=== PATIENT | male | born 1975 | race Caucasian/White ===

== ENCOUNTER 2017-05-27 12:21 | Emergency (ER) | payer SELFPAY ==
[2017-05-27 13:20] LABS: APPEARANCE CLEAR (CLEAR); BILIRUBIN NEGATIVE (NEGATIVE); COLOR YELLOW (YELLOW); GLUCOSE NEGATIVE (NEGATIVE); KETONE NEGATIVE (NEGATIVE); LEUKOCYTE ESTERASE 1+ (NEGATIVE); NITRITE NEGATIVE (NEGATIVE); PH 7.5 (5.0-6.0); PROTEIN NEGATIVE (NEGATIVE); UROBILINOGEN NORMAL (NORMAL)
[2017-05-27 13:22] LABS: BACTERIA FEW /hpf (NONE SEEN); EPITHELIAL CELLS OCC /hpf (0-5); GRANULAR CAST RARE /lpf (NONE SEEN); HYALINE CAST OCC /lpf (NONE SEEN); MUCUS <1+ /lpf (NONE SEEN); RED CELLS - URINE 0-5 /hpf (0-5)
== END 2017-05-27 15:40 | disposition home or self-care (01) ==
LOC: D.ER 12:21
PROVIDERS: Family Medicine
DX: S29.012A Strain of muscle and tendon of back wall of thorax, initial encounter (principal); V53.5XXA Driver of pick-up truck or van injured in collision with car, pick-up truck or van in traffic accident, initial encounter; Y93.89 Activity, other specified; Y92.410 Unspecified street and highway as the place of occurrence of the external cause; S39.012A Strain of muscle, fascia and tendon of lower back, initial encounter; S20.219A Contusion of unspecified front wall of thorax, initial encounter; S30.1XXA Contusion of abdominal wall, initial encounter; Z86.73 Personal history of transient ischemic attack (TIA), and cerebral infarction without residual deficits; R07.9 Chest pain, unspecified; F17.200 Nicotine dependence, unspecified, uncomplicated

== ENCOUNTER 2018-07-08 14:04 | Emergency (ER) | payer MEDICARE ==
[~2018-07-08] VITALS: Ht 185.4 cm; Wt 56.8 kg
[2018-07-08 14:11] VITALS: Ht 185.4 cm; Wt 56.8 kg
[2018-07-08 15:02] LABS: BASOPHILS 0.3 % (0-2); EOSINOPHILS 1.2 % (0-7); HEMATOCRIT 43.8 % (42.0-54.0); HEMOGLOBIN 15.7 g/dL (13.5-17.5); IMMATURE GRANULOCYTES 0.2 % (0-5); LYMPHOCYTES 33.9 % (15-50); MCHC 35.8 g/dL (31.0-37.0); MCV 89.2 fL (80.0-100.0); MEAN PLATELET VOLUME 10.9 fL (7.4-10.4); MONOCYTES 7.4 % (2-11); PLATELET COUNT 163 10x3/uL (130-400); RBC 4.91 10x6/uL (4.20-6.10); RDW 12.8 % (11.5-14.5); WBC 6.5 10x3/uL (4.8-10.8)
[2018-07-08 15:09] LABS: APPEARANCE TURBID (CLEAR); BILIRUBIN NEGATIVE (NEGATIVE); COLOR AMBER (YELLOW); GLUCOSE NEGATIVE (NEGATIVE); KETONE NEGATIVE (NEGATIVE); NITRITE NEGATIVE (NEGATIVE); PROTEIN NEGATIVE (NEGATIVE); SPECIFIC GRAVITY 1.005 (1.005-1.020); UROBILINOGEN NORMAL (NORMAL)
[2018-07-08 15:12] LABS: RED CELLS - URINE >50 /hpf (0-5); WHITE CELLS - URINE 0-5 /hpf (0-5)
[2018-07-08 15:13] LABS: AMORPHOUS SEDIMENT >1+ /lpf (NONE SEEN); BACTERIA FEW /hpf (NONE SEEN); EPITHELIAL CELLS OCC /hpf (0-5); GRANULAR CAST RARE /lpf (NONE SEEN)
[2018-07-08 15:16] LABS: ALKALINE PHOSPHATASE 88 U/L (46-116); ALT (SGPT) 26 U/L (10-68); BILIRUBIN - TOTAL 0.38 mg/dL (0.2-1.3); CALC OSMOLALITY 280 mosm/kg (275-300); CALCIUM 8.3 mg/dL (8.5-10.1); CARBON DIOXIDE 28.7 mmol/L (21.0-32.0); CHLORIDE - SERUM 104 mmol/L (98-107); CREATININE - SERUM 0.8 mg/dL (0.6-1.3); GLUCOSE 117 mg/dL (74-106); PROTEIN - SERUM 6.9 g/dL (6.4-8.2); SODIUM 141 mmol/L (136-145); UREA NITROGEN 9 mg/dL (7-18); eGFR NON AFRICAN AMERICAN > 90 mL/min (90-120)
[2018-07-08] MEDS ORDERED: NORCO 7.5/325 T1 TA1 PO (17:48)
[2018-07-08] MEDS ORDERED: FLOMAX0.4 MG PO (17:48)
[2018-07-08 18:04] VITALS: BP 104/75
== END 2018-07-08 18:06 | disposition home or self-care (01) ==
LOC: D.ER 14:04
PROVIDERS: Family Medicine
DX: N20.0 Calculus of kidney (principal); N23 Unspecified renal colic; F17.200 Nicotine dependence, unspecified, uncomplicated

== ENCOUNTER → 2018-08-01 14:17 | Outpatient (CLI) | payer MEDICARE, BC ==
[2018-07-08 14:11] VITALS: BMI 16.5
[~2018-08-01 14:17] MED LIST: FLOMAX0.4 MG PO; NORCO 7.5/325 T1 TA1 PO
== END | disposition home or self-care (01) ==
LOC: D.RAD 14:17
DX: N20.1 Calculus of ureter (principal)

== ENCOUNTER → 2018-08-07 16:22 | Outpatient (CLI) | payer MEDICARE, BC ==
[2018-07-08 14:11] VITALS: BMI 16.5
== END | disposition home or self-care (01) ==
LOC: D.CT 16:22
DX: N20.0 Calculus of kidney (principal)

== ENCOUNTER 2020-06-05 12:12 | Emergency (ER) | payer MEDICARE ==
[~2020-06-05] VITALS: Ht 185.4 cm; Wt 65.0 kg
[2020-06-05 13:10] VITALS: Ht 185.4 cm; Wt 65.0 kg
[2020-06-05] MEDS ORDERED: VOLTAREN75 MG PO (13:42)
[2020-06-05 14:03] VITALS: BP 112/65
== END 2020-06-05 14:04 | disposition home or self-care (01) ==
LOC: D.ER 12:12
DX: K02.9 Dental caries, unspecified (principal); K08.89 Other specified disorders of teeth and supporting structures; Z72.0 Tobacco use

== ENCOUNTER 2020-07-11 16:46 | Emergency (ER) | payer OTHER ==
[~2020-07-11] VITALS: Ht 185.4 cm; Wt 63.6 kg
[~2020-07-11 16:46] MED LIST changes: +VOLTAREN75 MG PO
[2020-07-11 16:56] VITALS: Ht 185.4 cm; Wt 63.6 kg
[2020-07-11 18:21] LABS: BASOPHILS 0.5 % (0-2); HEMATOCRIT 46.8 % (42.0-54.0); HEMOGLOBIN 16.5 g/dL (13.5-17.5); IMMATURE GRANULOCYTES 0.1 % (0-5); LYMPHOCYTES 39.9 % (15-50); MCH 32.2 pg (26.0-34.0); MCHC 35.3 g/dL (31.0-37.0); MCV 91.4 fL (80.0-100.0); MEAN PLATELET VOLUME 9.9 fL (7.4-10.4); MONOCYTES 7.3 % (2-11); NEUTROPHILS 51.2 % (40-80); RBC 5.12 10x6/uL (4.20-6.10); RDW 12.9 % (11.5-14.5); WBC 7.8 10x3/uL (4.8-10.8)
[2020-07-11 18:23] LABS: PLATELET COUNT 207 10x3/uL (130-400)
[2020-07-11 18:30] LABS: APTT 29.8 SECONDS (22.8-39.4); INR 1.01 (0.85-1.17); PROTIME 13.2 SECONDS (11.6-15.0)
[2020-07-11 18:42] LABS: BILIRUBIN NEGATIVE (NEGATIVE); KETONE NEGATIVE (NEGATIVE); NITRITE NEGATIVE (NEGATIVE); UROBILINOGEN NORMAL mg/dL (< 2)
[2020-07-11 19:07] LABS: CALC OSMOLALITY 271 mosm/kg (275-300); CALCIUM 8.8 mg/dL (8.5-10.1); CARBON DIOXIDE 23.6 mmol/L (21.0-32.0); CHLORIDE - SERUM 103 mmol/L (98-107); CREATININE - SERUM 0.8 mg/dL (0.6-1.3); GLUCOSE 99 mg/dL (74-106); POTASSIUM - SERUM 3.8 mmol/L (3.5-5.1); SODIUM 136 mmol/L (136-145); UREA NITROGEN 12 mg/dL (7-18); eGFR NON AFRICAN AMERICAN > 90 mL/min (90-120)
[2020-07-11 19:13] LABS: ALBUMIN 4.3 g/dL (3.4-5.0); ALKALINE PHOSPHATASE 80 U/L (30-120); ALT (SGPT) 18 U/L (10-68); BILIRUBIN - TOTAL 0.38 mg/dL (0.2-1.3); PROTEIN - SERUM 7.2 g/dL (6.4-8.2)
[2020-07-11] MEDS ORDERED: NORCO 7.5-3251 EACH PO (20:06)
[2020-07-11 20:26] VITALS: BP 110/74
== END 2020-07-11 20:28 | disposition home or self-care (01) ==
LOC: D.ER 16:46
PROVIDERS: Family Medicine
DX: R07.89 Other chest pain (principal); M54.9 Dorsalgia, unspecified; M79.18 Myalgia, other site; T14.8XXA Other injury of unspecified body region, initial encounter; V49.9XXA Car occupant (driver) (passenger) injured in unspecified traffic accident, initial encounter; M54.2 Cervicalgia; I25.2 Old myocardial infarction

== ENCOUNTER 2020-07-14 17:14 | Emergency (ER) | payer MEDICARE ==
[~2020-07-14] VITALS: Ht 185.4 cm; Wt 63.7 kg
[~2020-07-14 17:14] MED LIST changes: +NORCO 7.5-3251 EACH PO
[2020-07-14 17:19] VITALS: BP 103/75; Ht 185.4 cm; Wt 63.7 kg
== END 2020-07-14 20:45 | disposition home or self-care (01) ==
LOC: D.ER 17:14
DX: M79.18 Myalgia, other site (principal); Z86.73 Personal history of transient ischemic attack (TIA), and cerebral infarction without residual deficits; I25.2 Old myocardial infarction; Z72.0 Tobacco use